=== PATIENT | female | born 1975 | race Caucasian/White ===

== ENCOUNTER → 2019-06-30 | Outpatient (CLI) | payer OTHER | LOC: LAB.O 17:51 | PROVIDERS: ATTEND Nurse Practitioner Family | DX: I95.1 Orthostatic hypotension (principal) ==

== ENCOUNTER 2020-07-31 19:04 | Emergency (ER) | payer BC, OTHER ==
[2020-07-31 19:21] VITALS: O2SAT 98
[2020-07-31] MEDS ORDERED: PENICILLIN BENZATHINE 1.2 MU 1.2 MU/2 ML SYG IM ONE (19:40)
--- NOTE | 2020-07-31 19:50 | ED.PDOC ---
History of Present Illness - General Chief Complaint: General Time Seen by Provider: 07/31/20 19:11 Source: patient Exam Limitations: no limitations - History of Present Illness Initial Comments: The patient is a 45-year-old female presented to emergency room secondary to headache, body ache and mild sore throat along with 2 episodes of nausea and vomiting over the last 24 hours. 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 Mild runny nose. No significant cough or shortness of breath. No chest pain. No rash. Timing/Duration: 24 hours Severity: mild Improving Factors: nothing Worsening Factors: nothing Associated Symptoms: headaches, malaise, nausea/vomiting Allergies/Adverse Reactions: Allergies NO KNOWN ALLERGY Allergy (Verified 07/31/20 19:22) Review of Systems - Review of Systems Constitutional: States: malaise EENTM: States: nose congestion, throat pain Respiratory: States: no symptoms reported Cardiology: States: no symptoms reported Gastrointestinal/Abdominal: States: no symptoms reported Genitourinary: States: no symptoms reported Musculoskeletal: States: other - Body aches Skin: States: no symptoms reported Neurological: States: no symptoms reported Endocrine: States: no symptoms reported All other Systems: No Change from Baseline Past Medical History (General) - Patient Medical History Hx Seizures: No Hx Stroke: No Hx Dementia: No Hx Asthma: No Hx of COPD: No Hx Cardiac Disorders: No Hx Congestive Heart Failure: No Hx Pacemaker: No Hx Hypertension: Yes Hx Thyroid Disease: Yes Hx Diabetes: Yes Hx Gastroesophageal Reflux: No Hx Renal Disease: No Hx Cancer: No Hx of HIV: No Hx Hepatitis C: No Hx MRSA: No Surgical History: cholecystectomy, Hysterectomy - Vaccination History Hx Tetanus, Diphtheria Vaccination: No Hx Influenza Vaccination: No Hx Pneumococcal Vaccination: No Immunizations Up to Date: No - Social History Hx Tobacco Use: No Hx Chewing Tobacco Use: No Hx Alcohol Use: No Hx Substance Use: No Hx Substance Use Treatment: No Hx Depression: No Feels Threatened In Home Enviroment: No Feels Threatened In a Relationship: No Hx Physical Abuse: No Hx Emotional Abuse: No Hx Suspected Abuse: No - Female History Patient is a Female of Child Bearing Age (10 -59 yrs old): Yes Patient : No - Triage Comment ED Triage Comment: The patient was alert and oriented times 4 and complained of headache and bodyaches. She did not appear in distress and had no other noted complaints or obviuoius signs of illness noted during assessment. Family Medical History - Family History Father Living Status: Hx Cardiac Disease: Yes - of heart attack Physical Exam - Physical Exam General Appearance: Alert, Comfortable, No apparent distress Eye Exam: bilateral normal Ears, Nose, Throat: hearing grossly normal, nasal congestion - Mild, pharyngeal erythema - Mild Neck: non-tender, full range of motion, supple Respiratory: lungs clear, normal breath sounds, no respiratory distress, no accessory muscle use Cardiovascular/Chest: normal peripheral pulses, regular rate, rhythm, no edema Peripheral Pulses: radial,right: 2+, radial,left: 2+ Gastrointestinal/Abdominal: non tender - Obese, soft Rectal Exam: deferred Extremity: normal range of motion, non-tender, normal inspection, no pedal edema, normal capillary refill 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 The patient tested positive for strep throat here and received a dose of Bicillin LA. Patient tested negative with the rapid coronavirus test. She is to keep well-hydrated. Motrin and Tylenol can be used for discomfort. She should avoid work tomorrow. ER warnings were given for any significant worsening. Maintain good control of diabetes. [email or web address] [id number] - Results/Orders Results/Orders: Rapid strep is positive. Rapid coronavirus is negative. Departure - Departure Clinical Impression: Strep sore throat Disposition: Discharge to Home or Self Care Departure Forms: ED Discharge - Pt. Copy, Patient Portal Self Enrollment Instructions: Sore Throat, Adult (DC) Diet: regular diet Activity: increase activity as tolerated Referrals: [facility] [Primary Care Provider] - 1-2 Weeks Additional Instructions: The patient is a 45-year-old female presenting with sore throat headache and body aches along with a couple of episodes of nausea and vomiting. The patient tested positive for strep throat here and received a dose of Bicillin LA. Patient tested negative with the rapid coronavirus test. She is to keep well-hydrated. Motrin and Tylenol can be used for discomfort. She should avoid work tomorrow. ER warnings were given for any significant worsening. Maintain good control of diabetes.
[2020-07-31 20:09] VITALS: BP 143/102; TEMP 97
== END 2020-07-31 20:05 | disposition home or self-care (01) ==
LOC: ER 19:04
DX: J02.0 Streptococcal pharyngitis (principal); Z20.828 Contact with and (suspected) exposure to other viral communicable diseases; R11.2 Nausea with vomiting, unspecified; E11.9 Type 2 diabetes mellitus without complications; E07.9 Disorder of thyroid, unspecified; I10 Essential (primary) hypertension
CPT/HCPCS: 87635; 87880; J0561